=== PATIENT | female | born 1965 | race Caucasian/White ===

== ENCOUNTER 2017-06-13 12:57 | Inpatient (IN) | payer SELFPAY ==
[2017-06-13] MEDS ORDERED: Sodium Chloride 0.9% 5 ML Syringe FLUSH PRN ×2 (13:03→14:17)
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
[2017-06-13] MEDS: Sodium Chloride 0.9% 1,000 ML IV ONE ×2 (13:25→15:43)
[2017-06-13] MEDS: Diltiazem 25 MG/5 ML SDV IVPUSH ONE ×2 (13:35→15:43)
[2017-06-13 13:52] LABS: CHLORIDE,CL 104 mmol/L (98-115); SODIUM,NA 140 mmol/L (136-145)
[2017-06-13] MEDS ORDERED: Diltiazem 125 MG in Sodium Chloride 0.9% 100 ML IV SCH (14:00)
[2017-06-13] MEDS ORDERED: Nicotine 14 MG/24 Hr Patch TRDERM SCH (14:30)
[2017-06-13 17:58] VITALS: BP 96/55
--- NOTE | 2017-06-14 08:10 | DISCH ---
SUBJECTIVE: The patient is a 51-year-old patient who was brought to the emergency room by EMS after evaluation in the [facility]. The patient was complaining of palpitations which began approximately 1 hour ago. She denied having any chest pain, shortness of breath, diaphoresis, nausea, or vomiting. 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 Her son is undergoing treatment for WPW syndrome at this time. The patient is under moderate degree of stress with studies and managing [facility] [place], [place]. She is a current every day smoker. She has had used tobacco for 25 years. PAST MEDICAL HISTORY: Positive for cholelithiasis. OBJECTIVE: On my examination at about 6:15, the patient is comfortably sitting in her bed. Her rhythm which was initially tachycardic (atrial tachycardia) has had converted back into sinus rhythm. She had no chest pain. EKG shows no signs of ischemia. LABORATORY DATA: Hemoglobin is 14.6, white count 9.3. Troponin was normal. Glucose was slightly elevated at 151. Calcium normal. CPK normal. Beta natriuretic peptide normal. Electrolytes are all normal except for potassium of 3.4. Thyroid was not done, was ordered. HOSPITAL COURSE AND TREATMENT: After being admitted to the hospital, the patient was started on IVs and IV Cardizem drip was given. She was also started on aspirin enteric-coated 81 mg daily. During the course of this hospital stay, the patient's rhythm converted back to sinus rhythm. The Cardizem drip was discontinued. She was discharged on the evening of the at around 6:30 p.m. with advice to be seen in the clinic tomorrow for blood tests including a CMP and TSH. No additional medication was given to her. She can continue with aspirin 81 mg daily. We will follow her at the clinic in the next few days. She has been advised to cut back her level of stress, caffeine intake, nicotine intake, and get more sleep. If her symptoms return, then she will have to be seen by Cardiology for formal EP study. Cardiology was consulted prior to admission of this patient by the emergency room physician. She has also been advised to decrease and eventually stop her smoking. Nicotine gum or patches were advised. /[id number]/MODL
--- NOTE | 2017-06-23 09:21 | PN ---
06/22/2017PATIENT NAME: HANNA GALINDO Instructing the dictation department to state that this patient's inpatient record of 06/13/2017 should be used as H and P for this patient of same day. This H and P has been dictated by MARIE Scherer. /[id number]/MODL
== END 2017-06-13 18:30 | disposition home or self-care (01) | DRG 201 ==
LOC: KA.ED 12:57 → KA.MS 14:30
PROVIDERS: ADMIT Physician Assistant Medical; ATTEND Family Medicine
DX: I48.0 Paroxysmal atrial fibrillation (principal); I47.1 Supraventricular tachycardia; R73.9 Hyperglycemia, unspecified; F17.210 Nicotine dependence, cigarettes, uncomplicated; Z79.52 Long term (current) use of systemic steroids; Z79.82 Long term (current) use of aspirin
CPT/HCPCS: 36415; 71010; 80048; 82550; 82553; 83880; 84484; 85025; 85610; 85730; 93005; 96361; 96365; 96376; 99285; J3490; J7030; J7050

== ENCOUNTER 2017-09-01 19:14 | Emergency (ER) | payer SELFPAY ==
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
[2017-09-01 19:53] VITALS: BP 99/50
== END 2017-09-01 20:05 | disposition home or self-care (01) ==
LOC: KA.ED 19:14
DX: R00.2 Palpitations (principal); F17.210 Nicotine dependence, cigarettes, uncomplicated; Z88.1 Allergy status to other antibiotic agents; Z88.0 Allergy status to penicillin; Z88.6 Allergy status to analgesic agent; Z79.82 Long term (current) use of aspirin
CPT/HCPCS: 93005; 99284

== ENCOUNTER 2017-11-04 05:25 | Emergency (ER) | payer BC ==
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
[2017-11-04 07:29] VITALS: BP 110/58
== END 2017-11-04 06:45 | disposition home or self-care (01) ==
LOC: KA.ED 05:25
DX: R00.2 Palpitations (principal); F17.210 Nicotine dependence, cigarettes, uncomplicated; I48.91 Unspecified atrial fibrillation; Z79.82 Long term (current) use of aspirin; Z88.0 Allergy status to penicillin; Z88.6 Allergy status to analgesic agent; Z88.1 Allergy status to other antibiotic agents
CPT/HCPCS: 93005; 99284

== ENCOUNTER 2020-10-08 17:12 | Emergency (ER) | payer BC ==
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
--- NOTE | 2020-10-08 18:05 | CR ---
[id number] RAD/RAD Chest PA And Lateral EXAM: RAD Chest PA And Lateral CLINICAL DATA: PALPITATIONS COMPARISON: CORRELATION IS MADE WITH APRIL 21, 2020 FINDINGS: The lungs are clear but hyperaerated. The cardiomediastinal contour is normal. The regional bones and soft tissues are unremarkable. IMPRESSION: AIRWAY DISEASE Bill Tidwell MD 10/08/20 [id number] Thank you for allowing us to participate in the care of your patient.
[2020-10-08 18:32] LABS: ANION GAP 12.2 mmol/L (5-15); CHLORIDE,CL 105 mmol/L (98-115); SODIUM,NA 140 mmol/L (136-145)
[2020-10-08 18:51] VITALS: BP 112/57; PULSE 77
== END 2020-10-08 18:50 | disposition home or self-care (01) ==
LOC: KA.ED 17:12
DX: I49.3 Ventricular premature depolarization (principal); I48.91 Unspecified atrial fibrillation; Z88.1 Allergy status to other antibiotic agents; Z88.6 Allergy status to analgesic agent; Z88.0 Allergy status to penicillin
CPT/HCPCS: 36415; 71046; 80053; 82550; 82553; 83735; 84439; 84443; 84481; 84484; 85025; 93005; 99284; 99285-25

== ENCOUNTER 2021-04-13 21:30 | Emergency (ER) | payer BC ==
[2021-04-13] MEDS ORDERED: Sodium Chloride 0.9% 10 ML Syringe FLUSH PRN (22:15)
[2021-04-13 22:16] VITALS: BP 132/64; PULSE 93
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
[2021-04-13 22:30] LABS: ANION GAP 11.9 mmol/L (5-15); CHLORIDE,CL 102 mmol/L (98-107); SODIUM,NA 138 mmol/L (136-145)
== END 2021-04-13 23:15 | disposition home or self-care (01) ==
LOC: KA.ED 21:30
DX: K29.00 Acute gastritis without bleeding (principal); E03.9 Hypothyroidism, unspecified; Z88.0 Allergy status to penicillin; Z88.6 Allergy status to analgesic agent; Z88.8 Allergy status to other drugs, medicaments and biological substances; Z88.1 Allergy status to other antibiotic agents; Z90.49 Acquired absence of other specified parts of digestive tract; Z90.710 Acquired absence of both cervix and uterus
CPT/HCPCS: 80053; 81003; 83690; 85025; 93005; 99284; 99284-25

== ENCOUNTER 2021-05-18 16:46 | Emergency (ER) | payer BC ==
[2021-05-18] MEDS ORDERED: Sodium Chloride 0.9% 10 ML Syringe FLUSH PRN (16:48)
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
[2021-05-18 17:10] VITALS: BP 114/62; PULSE 82
[2021-05-18] MEDS ORDERED: Sodium Chloride 0.9% 1,000 ML IV ONE (17:16)
[2021-05-18 17:25] LABS: CHLORIDE,CL 104 mmol/L (98-107); SODIUM,NA 141 mmol/L (136-145)
--- NOTE | 2021-05-18 17:39 | CR ---
[id number] RAD/RAD Chest PA And Lateral EXAM: RAD Chest PA And Lateral CLINICAL DATA: DIZZINESS COMPARISON: CORRELATION IS MADE WITH MARCH 18, 2021 FINDINGS: The lungs are clear. The cardiomediastinal contour is normal. The regional bones and soft tissues are unremarkable. IMPRESSION: NO ACUTE PROCESS. Bill Tidwell MD 05/18/21 [id number] Thank you for allowing us to participate in the care of your patient.
== END 2021-05-18 17:45 | disposition home or self-care (01) ==
LOC: KA.ED 16:46
DX: R55 Syncope and collapse (principal); R42 Dizziness and giddiness; Z88.1 Allergy status to other antibiotic agents; Z88.6 Allergy status to analgesic agent; Z88.0 Allergy status to penicillin
CPT/HCPCS: 36415; 71046; 80053; 81001; 84484; 85025; 93005; 99284; 99284-25

== ENCOUNTER 2021-07-18 11:05 | Emergency (ER) | payer BC ==
[2021-07-18 11:35] VITALS: BP 128/75; PULSE 89
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
--- NOTE | 2021-07-18 12:37 | CR ---
[id number] RAD/RAD Chest PA And Lateral; [id number] RAD/RAD Ribs Left W PA Chest EXAM: Frontal and lateral chest, left RIBS 2 views INDICATION: RIB PAIN. COMPARISON: Chest exam May 18, 2021. DISCUSSION: Hyperinflation is compatible with chronic obstructive pulmonary disease. Mild chronic blunting of one of the costophrenic angles on the lateral view, side undetermined. No acute infiltrates are identified. Normal heart size. Possible nondisplaced anterior left seventh rib fracture. The ribs are otherwise unremarkable. IMPRESSION: 1. Possible nondisplaced anterior seventh rib fracture. Bandar Mendoza MD 07/18/21 [id number] Thank you for allowing us to participate in the care of your patient.
== END 2021-07-18 12:10 | disposition home or self-care (01) ==
LOC: KA.ED 11:05
DX: R07.81 Pleurodynia (principal); Z88.0 Allergy status to penicillin; Z88.6 Allergy status to analgesic agent; Z88.1 Allergy status to other antibiotic agents; Z72.0 Tobacco use
CPT/HCPCS: 71046; 71100-LT; 99283; 99283-25

== ENCOUNTER 2021-09-09 10:39 | Emergency (ER) | payer BC ==
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
--- NOTE | 2021-09-09 11:20 | CR ---
[id number] RAD/RAD Chest PA And Lateral EXAM: RAD Chest PA And Lateral INDICATION: CHEST PRESSURE. COMPARISON: July 18, 2021. DISCUSSION/IMPRESSION: Cardiomediastinal silhouette is normal in size and contour. Bilateral symmetric lung hyperinflation, similar to the prior examination. Nodular hyperdensity in the right lung base not seen previously. Findings are nonspecific and possibly summation artifact from overlapping structures of the chest wall. However, given change in appearance since the prior examination, noncontrast chest CT is recommended to exclude underlying parenchymal nodularity. No evidence of pneumonia. No pleural effusion or pneumothorax. Flako Cunningham MD 09/09/21 [id number] Thank you for allowing us to participate in the care of your patient.
[2021-09-09 11:38] LABS: ANION GAP 14.2 mmol/L (5-15); CHLORIDE,CL 107 mmol/L (98-107); SODIUM,NA 145 mmol/L (136-145)
[2021-09-09 11:50] VITALS: BP 104/58; PULSE 73
--- NOTE | 2021-09-09 12:48 | CT ---
[id number] CT/CT Chest WO IV EXAM: CHEST CT WITHOUT CONTRAST INDICATION: CHEST PRESSURE, RIGHT BASE NODULE. COMPARISON: Radiographs September 09, 2021. DISCUSSION: Chronic obstructive pulmonary disease with mild to moderate apical predominant emphysema and sequela of bronchitis. No infiltrates, nodules or other acute findings. Specifically, there is no nodule in the right lung base in the area of concern on chest radiograph from earlier today. Normal heart size. No pleural or pericardial effusion. No adenopathy. Cholecystectomy. The imaged upper abdomen and osseous structures are otherwise unremarkable. IMPRESSION: 1. Chronic obstructive pulmonary disease. 2. Negative for pulmonary nodule. Bandar Mendoza MD 09/09/21 [phone] Thank you for allowing us to participate in the care of your patient.
== END 2021-09-09 12:20 | disposition home or self-care (01) ==
LOC: KA.ED 10:39
DX: R91.1 Solitary pulmonary nodule (principal); I48.91 Unspecified atrial fibrillation; Z88.1 Allergy status to other antibiotic agents; Z88.6 Allergy status to analgesic agent; Z88.0 Allergy status to penicillin
CPT/HCPCS: 36415; 71046; 71250; 80053; 84484; 85025; 85379; 93010; 99284; 99285-25

== ENCOUNTER 2022-04-08 19:52 | Emergency (ER) | payer BC ==
[2022-04-08 20:05] VITALS: BP 133/73; PULSE 92
== END 2022-04-08 21:10 | disposition home or self-care (01) ==
LOC: KA.ED 19:52
DX: S39.012A Strain of muscle, fascia and tendon of lower back, initial encounter (principal); Z90.49 Acquired absence of other specified parts of digestive tract; Z88.1 Allergy status to other antibiotic agents; Z88.0 Allergy status to penicillin; Z88.6 Allergy status to analgesic agent; X50.0XXA Overexertion from strenuous movement or load, initial encounter
CPT/HCPCS: 99283

== ENCOUNTER 2022-04-18 08:59 | Emergency (ER) | payer BC ==
[2022-04-18] MEDS ORDERED: Sodium Chloride 0.9% 1,000 ML IV ONE (11:39)
[2022-04-18] MEDS ORDERED: Sodium Chloride 0.9% 1,000 ML ONE (11:41)
[2022-04-18 12:15] LABS: ANION GAP 12.9 mmol/L (5-15)
[2022-04-18 13:05] VITALS: BP 112/55; PULSE 81
== END 2022-04-18 13:40 | disposition home or self-care (01) ==
LOC: KA.ED 08:59
DX: R51.9 Headache, unspecified (principal); D70.9 Neutropenia, unspecified; E03.9 Hypothyroidism, unspecified; Z88.0 Allergy status to penicillin; Z88.6 Allergy status to analgesic agent; Z88.1 Allergy status to other antibiotic agents
CPT/HCPCS: 36415; 70450; 80048; 81001; 83605; 85025; 96360; 99284; 99284-25; J7030

== ENCOUNTER 2022-05-03 21:27 | Emergency (ER) | payer BC ==
[2022-05-03] MEDS ORDERED: methylPREDNISolone Sodium Succinate 125 MG/2 ML SDV IM ONE (21:34)
[2022-05-04 04:17] VITALS: BP 119/56; PULSE 86
== END 2022-05-03 21:50 | disposition home or self-care (01) ==
LOC: KA.ED 21:27
DX: T78.40XA Allergy, unspecified, initial encounter (principal); Z88.0 Allergy status to penicillin; Z88.6 Allergy status to analgesic agent; Z88.1 Allergy status to other antibiotic agents; Z88.8 Allergy status to other drugs, medicaments and biological substances
CPT/HCPCS: 96372; 99283; J2930

== ENCOUNTER 2022-09-17 22:39 | Emergency (ER) | payer BC ==
[2022-09-17 22:57] VITALS: BP 119/55; PULSE 78
== END 2022-09-17 23:17 | disposition home or self-care (01) ==
LOC: KA.ED 22:39
DX: S29.012A Strain of muscle and tendon of back wall of thorax, initial encounter (principal); E03.9 Hypothyroidism, unspecified; F17.210 Nicotine dependence, cigarettes, uncomplicated; Z88.1 Allergy status to other antibiotic agents; Z88.0 Allergy status to penicillin; Z91.018 Allergy to other foods; Z88.8 Allergy status to other drugs, medicaments and biological substances; X50.9XXA Other and unspecified overexertion or strenuous movements or postures, initial encounter
CPT/HCPCS: 71046; 99284

== ENCOUNTER 2022-10-08 20:54 | Emergency (ER) | payer BC ==
[2022-10-08] MEDS ORDERED: Sodium Chloride 0.9% 10 ML Syringe FLUSH PRN (21:09)
[2022-10-08] MEDS ORDERED: Sodium Chloride 0.9% 1,000 ML IV ONE (21:10)
[2022-10-08 21:30] VITALS: BP 118/68; PULSE 89
[2022-10-08 21:45] LABS: ANION GAP 13.7 mmol/L (5-15)
[2022-10-08] MEDS ORDERED: Acetaminophen Susp 160 MG/5 ML 120 ML Bottle PO SCH (22:00)
[2022-10-08] MEDS ORDERED: Iopamidol 755 Mg/ML 75 ML Bottle IVPUSH ONE (22:13)
[2022-10-08] MEDS ORDERED: Sodium Chloride 0.9% 50 ML IV SCH (22:15)
[2022-10-08] MEDS ORDERED: Alum Hydrox/Mag Hydrox/Simeth 30 ML, Lidocaine 2% 15 ML PO ONE ×2 (22:33)
[2022-10-08] MEDS ORDERED: Omeprazole 2 MG/ML 150 ML Kit PO ONE (22:47)
[2022-10-08] MEDS ORDERED: Pantoprazole 40 MG Vial IVPUSH ONE (22:56)
== END 2022-10-08 23:30 | disposition home or self-care (01) ==
LOC: KA.ED 20:54
DX: K25.3 Acute gastric ulcer without hemorrhage or perforation (principal); I48.91 Unspecified atrial fibrillation; E03.9 Hypothyroidism, unspecified; Z88.1 Allergy status to other antibiotic agents; Z88.0 Allergy status to penicillin; Z88.8 Allergy status to other drugs, medicaments and biological substances
CPT/HCPCS: 74177; 80053; 81001; 83690; 85025; 87086; 87088; 96360; 99284; 99284-25; A9270-GY; J3490; J7030; Q9967

== ENCOUNTER 2024-03-12 04:36 | Emergency (ER) | payer BC ==
[2024-03-12] MEDS: Aspirin 81 MG Tab.Chew PO ONE (04:59)
[2024-03-12 05:19] LABS: BASOPHILS ABSOLUTE AUTO 0.07 10^3/uL (0.00-0.10); EOSINOPHILS ABSOLUTE AUTO 0.25 10^3/uL (0.10-0.30); EOSINOPHILS PERCENT AUTO 3.7 % (1.0-3.0); HEMATOCRIT 41.2 % (37.0-47.0); HEMOGLOBIN 13.6 g/dL (12.0-16.0); IMMATURE GRAN ABSOLUTE AUTO 0.01 10^3/uL (0.00-0.50); IMMATURE GRAN PERCENT AUTO 0.1 % (0.0-5.0); LYMPHOCYTES ABSOLUTE AUTO 1.93 10^3/uL (1.00-4.00); LYMPHOCYTES PERCENT AUTO 28.4 % (20.0-40.0); MEAN CORPUSCULAR HEMOGLOBIN 31.5 pg (27.0-31.0); MEAN CORPUSCULAR VOLUME 95.4 fL (82.0-92.0); MEAN PLATELET VOLUME 9.6 fL (7.4-10.4); MONOCYTES ABSOLUTE AUTO 0.52 10^3/uL (0.10-0.80); MONOCYTES PERCENT AUTO 7.6 % (2.0-8.0); NEUTROPHILS ABSOLUTE AUTO 4.02 10^3/uL (2.50-7.00); NEUTROPHILS PERCENT AUTO 59.2 % (50.0-70.0); PLATELET COUNT,PLT 146 10^3/uL (150-400); RED BLOOD CELL COUNT 4.32 10^6/uL (3.80-5.50); RED CELL DISTRIBUTION WIDTH 12.8 % (11.5-14.5)
[2024-03-12 05:37] LABS: ANION GAP 10.7 mmol/L (5-15); CARBON DIOXIDE,CO2 30.2 mmol/L (21.0-32.0); CREATININE 0.83 mg/dL (0.51-1.17); EST CRCL DRUG DOSING (CG) 59.25 mL/min; POTASSIUM,K 3.9 mmol/L (3.5-5.1)
[2024-03-12 05:49] VITALS: BP 125/75; PULSE 86
== END 2024-03-12 06:00 | disposition home or self-care (01) ==
LOC: KA.ED 04:36
DX: R07.89 Other chest pain (principal); Z88.1 Allergy status to other antibiotic agents; Z88.6 Allergy status to analgesic agent; Z88.5 Allergy status to narcotic agent; Z88.0 Allergy status to penicillin; Z91.018 Allergy to other foods; Z90.49 Acquired absence of other specified parts of digestive tract
CPT/HCPCS: 36415; 71045; 80048; 84484; 85025; 93005; 93010; 99284; 99285; A9270-GY

== ENCOUNTER 2025-08-19 07:45 | Emergency (ER) | payer BC ==
[2025-08-19] MEDS ORDERED: Sodium Chloride 0.9% 10 ML Syringe FLUSH PRN (07:55)
[2025-08-19 08:12] LABS: BASOPHILS ABSOLUTE AUTO 0.05 10^3/uL (0.00-0.10); BASOPHILS PERCENT AUTO 0.5 % (0.0-1.0); EOSINOPHILS ABSOLUTE AUTO 0.08 10^3/uL (0.10-0.30); EOSINOPHILS PERCENT AUTO 0.8 % (1.0-3.0); IMMATURE GRAN ABSOLUTE AUTO 0.01 10^3/uL (0.00-0.04); IMMATURE GRAN PERCENT AUTO 0.1 % (0.0-0.4); LYMPHOCYTES ABSOLUTE AUTO 0.91 10^3/uL (1.00-4.00); LYMPHOCYTES PERCENT AUTO 8.9 % (20.0-40.0); MEAN PLATELET VOLUME 9.2 fL (7.4-10.4); MONOCYTES ABSOLUTE AUTO 0.77 10^3/uL (0.10-0.80); MONOCYTES PERCENT AUTO 7.5 % (2.0-8.0); NEUTROPHILS ABSOLUTE AUTO 8.39 10^3/uL (2.50-7.00); NEUTROPHILS PERCENT AUTO 82.2 % (50.0-70.0); PLATELET COUNT,PLT 135 10^3/uL (150-400); RED BLOOD CELL COUNT 4.46 10^6/uL (3.80-5.50); RED CELL DISTRIBUTION WIDTH 12.8 % (11.5-14.5); WHITE BLOOD CELL COUNT,WBC 10.21 10^3/uL (5.00-10.00)
[2025-08-19 08:30] LABS: ALANINE AMINOTRANSFERASE,ALT 21.0 U/L (14-63); ASPARTATE AMNIOTRANSFERASE,AST 19.0 U/L (15-37); BILIRUBIN TOTAL 0.7 mg/dL (0.2-1.0); BLOOD UREA NITROGEN,BUN 7.0 mg/dL (7-18); CARBON DIOXIDE,CO2 28.6 mmol/L (21.0-32.0); CHLORIDE,CL 103.0 mmol/L (98-107); CREATININE 0.72 mg/dL (0.51-1.17); EST CRCL DRUG DOSING (CG) 72.29 mL/min; GLUCOSE RANDOM 122.0 mg/dL (70-140); POTASSIUM,K 4.0 mmol/L (3.5-5.1); PROTEIN TOTAL,TP 6.6 g/dL (6.4-8.2); SODIUM,NA 138.0 mmol/L (136-145)
[2025-08-19 08:32] LABS: ESTIMATED GFR 96.0 mL/min (>=60)
[2025-08-19 09:16] LABS: INFLUENZA A NAA NEGATIVE (NEGATIVE); INFLUENZA B NAA NEGATIVE (NEGATIVE); RESPIRATORY SYNCYTIAL VIR NAA NEGATIVE (NEGATIVE)
[2025-08-19 09:17] LABS: CORONAVIRUS COVID-19 NAA NEGATIVE (NEGATIVE)
[2025-08-19 09:53] VITALS: BP 113/58; PULSE 82
== END 2025-08-19 09:34 | disposition home or self-care (01) ==
LOC: KA.ED 07:51
DX: J06.9 Acute upper respiratory infection, unspecified (principal); B97.89 Other viral agents as the cause of diseases classified elsewhere; R00.2 Palpitations; Z90.49 Acquired absence of other specified parts of digestive tract; Z88.0 Allergy status to penicillin; Z88.1 Allergy status to other antibiotic agents; Z88.7 Allergy status to serum and vaccine; Z88.5 Allergy status to narcotic agent; Z88.8 Allergy status to other drugs, medicaments and biological substances
CPT/HCPCS: 36415; 71045; 80053; 83735; 84484; 85025; 87637; 93010; 96360; 99284; 99285-25; J7030

== ENCOUNTER 2025-08-26 02:02 | Emergency (ER) | payer BC ==
[2025-08-26] MEDS ORDERED: Sodium Chloride 0.9% 10 ML Syringe FLUSH PRN (02:17)
[2025-08-26 02:35] LABS: BASOPHILS ABSOLUTE AUTO 0.10 10^3/uL (0.00-0.10); BASOPHILS PERCENT AUTO 0.9 % (0.0-1.0); EOSINOPHILS ABSOLUTE AUTO 0.03 10^3/uL (0.10-0.30); EOSINOPHILS PERCENT AUTO 0.3 % (1.0-3.0); IMMATURE GRAN ABSOLUTE AUTO 0.03 10^3/uL (0.00-0.04); IMMATURE GRAN PERCENT AUTO 0.3 % (0.0-0.4); LYMPHOCYTES ABSOLUTE AUTO 1.19 10^3/uL (1.00-4.00); LYMPHOCYTES PERCENT AUTO 11.1 % (20.0-40.0); MEAN PLATELET VOLUME 9.1 fL (7.4-10.4); MONOCYTES ABSOLUTE AUTO 0.92 10^3/uL (0.10-0.80); MONOCYTES PERCENT AUTO 8.6 % (2.0-8.0); NEUTROPHILS ABSOLUTE AUTO 8.49 10^3/uL (2.50-7.00); NEUTROPHILS PERCENT AUTO 78.8 % (50.0-70.0); PLATELET COUNT,PLT 158 10^3/uL (150-400); RED BLOOD CELL COUNT 3.87 10^6/uL (3.80-5.50); RED CELL DISTRIBUTION WIDTH 12.4 % (11.5-14.5); WHITE BLOOD CELL COUNT,WBC 10.76 10^3/uL (5.00-10.00)
[2025-08-26] MEDS: Acetylcysteine 20% 200 MG/ML 30 ML Soln SDV NEB SCH (02:40)
[2025-08-26] MEDS: Acetylcysteine 20% 200 MG/ML 30 ML Soln SDV ONE (02:40)
[2025-08-26 02:54] LABS: ALANINE AMINOTRANSFERASE,ALT 33.0 U/L (14-63); ASPARTATE AMNIOTRANSFERASE,AST 29.0 U/L (15-37); BILIRUBIN TOTAL 0.5 mg/dL (0.2-1.0); BLOOD UREA NITROGEN,BUN 6.0 mg/dL (7-18); CARBON DIOXIDE,CO2 28.2 mmol/L (21.0-32.0); CHLORIDE,CL 99.0 mmol/L (98-107); CREATININE 0.63 mg/dL (0.51-1.17); EST CRCL DRUG DOSING (CG) 75.73 mL/min; GLUCOSE RANDOM 100.0 mg/dL (70-140); POTASSIUM,K 3.1 mmol/L (3.5-5.1); PROTEIN TOTAL,TP 6.6 g/dL (6.4-8.2); SODIUM,NA 138.0 mmol/L (136-145)
[2025-08-26 02:55] LABS: ESTIMATED GFR 102.0 mL/min (>=60)
[2025-08-26 03:22] LABS: INFLUENZA A NAA NEGATIVE (NEGATIVE); INFLUENZA B NAA NEGATIVE (NEGATIVE); RESPIRATORY SYNCYTIAL VIR NAA NEGATIVE (NEGATIVE)
[2025-08-26 03:24] LABS: CORONAVIRUS COVID-19 NAA NEGATIVE (NEGATIVE)
[2025-08-26 04:23] VITALS: BP 134/62; PULSE 84
== END 2025-08-26 03:45 | disposition home or self-care (01) ==
LOC: KA.ED 02:02
DX: R06.02 Shortness of breath (principal); J06.9 Acute upper respiratory infection, unspecified; E87.6 Hypokalemia; B97.89 Other viral agents as the cause of diseases classified elsewhere; F17.200 Nicotine dependence, unspecified, uncomplicated; Z88.8 Allergy status to other drugs, medicaments and biological substances; Z88.0 Allergy status to penicillin; Z79.899 Other long term (current) drug therapy; Z90.49 Acquired absence of other specified parts of digestive tract
CPT/HCPCS: 36415; 71046; 80053; 83605; 84484; 85025; 86140; 87637; 93010; 96360; 99284; 99285-25; A9270-GY; J7030